=== PATIENT | male | born 1960 | race Caucasian/White ===

== ENCOUNTER 2024-07-24 16:39 | Emergency (ER) | payer OTHER, MEDICARE, BC ==
[~2024-07-24] VITALS: Ht 188 cm; Wt 86.2 kg
[2024-07-24] MEDS ORDERED: LIDOCAINE 5% (PATCH) 1 EA PATCH TP ONE (17:30)
[2024-07-24] MEDS ORDERED: ACETAMINOPHEN 325 MG TABLET ONE (17:31)
[2024-07-24] MEDS ORDERED: KETOROLAC TROMETHAMINE INJ 30 MG/ML VIAL ONE (17:31)
[2024-07-24] MEDS: KETOROLAC TROMETHAMINE INJ 30 MG/ML VIAL IM ONE (17:47)
[2024-07-24] MEDS: ACETAMINOPHEN 325 MG TABLET PO ONE ×2 (17:48)
[2024-07-24] MEDS: LIDOCAINE 5% (PATCH) 1 EA PATCH TP ONE (17:48)
[2024-07-24] MEDS ORDERED: IBUP-1955 PO (19:17)
[2024-07-24] MEDS ORDERED: OXYC-128 PO (19:17)
[2024-07-24 20:44] VITALS: BP 122/79; TEMP 98; O2SAT 98
== END 2024-07-24 20:44 | disposition home or self-care (01) ==
LOC: ER 16:51
DX: S22.088A Other fracture of T11-T12 vertebra, initial encounter for closed fracture (principal); M54.59 Other low back pain; W17.89XA Other fall from one level to another, initial encounter; Y93.89 Activity, other specified; Y92.89 Other specified places as the place of occurrence of the external cause; Y99.8 Other external cause status
CPT/HCPCS: 99284; 72131; J1885